=== PATIENT | male | born 1960 | race Caucasian/White ===

== ENCOUNTER → 2022-01-14 09:42 | Outpatient (CLI) | payer BC, SELFPAY ==
[2022-01-14 11:34] LABS: Add Manual Diff / Slide Review NO; Basophils Absolute Auto 0 /uL (0-100); Basophils Percent Auto 0.4 % (0-2); Eosinophils Absolute Auto 100 /uL (0-450); Eosinophils Percent Auto 2.1 % (2-4); Hematocrit 43.3 % (41-53); Hemoglobin 15.2 g/dL (13.5-17.5); Lymphocytes Absolute Auto 1600 /uL (1100-4500); Mean Corpuscular HGB Conc 35.1 % (30-36); Mean Corpuscular Hemoglobin 32.5 PG (26-34); Mean Corpuscular Volume 92.7 fL (80-100); Monocytes Absolute Auto 400 /uL (0-900); Monocytes Percent Auto 8.9 % (3-14); Neutrophils Absolute Auto 2000 /uL (1500-7000); Neutrophils Percent Auto 48.6 % (50-75); Platelet Count 130 X10^3/uL (150-400); Red Blood Cell Count 4.67 X10^6/uL (4.5-5.9); Red Cell Distribution Width 12.6 % (11.6-14.8); White Blood Cell Count 4.1 X10^3/uL (4.5-11.0)
[2022-01-14 12:14] LABS: Alanine Aminotransferase 20 IU/L (<50); Albumin 4.1 g/dL (3.5-5.0); Albumin Globulin Ratio 1.6 (1.0-2.8); Alkaline Phosphatase 49 U/L (38-126); Aspartate Aminotransferase 27 IU/L (17-59); BUN Creatinine Ratio 19.8 (6-22); Bilirubin Total 0.8 mg/dL (0.2-1.3); Blood Urea Nitrogen 19 mg/dL (9-20); Calcium 9.7 mg/dL (8.4-10.2); Carbon Dioxide 33 mmol/L (22-32); Chloride 102 mmol/L (98-107); Cholesterol 171 mg/dL (140-199); Estimated Glomerular Filt Rate > 60.0 mL/min (>60); Globulin 2.5 g/dL (1.7-4.1); Glucose 83 mg/dL (80-110); HDL Cholesterol 43 mg/dL (40-60); HEMOLYSIS < 15 (0-50); LDL Cholesterol Calculated 101 mg/dL (<100); Potassium 4.2 mmol/L (3.4-5.1); Sodium 138 mmol/L (137-145); Total Protein 6.6 g/dL (6.3-8.2); Triglycerides 133 mg/dL (35-150)
[2022-01-14 12:41] LABS: Thyroid Stimulating Hormone 3.08 uIU/mL (0.47-4.68)
[2022-01-14 12:42] LABS: Testosterone 244 ng/dL (71.8-623)
== END ==
PROVIDERS: PCP Family Medicine; Referring Provider Family Medicine; Visit Provider Family Medicine
DX: Z79.899 Other long term (current) drug therapy (principal); Z13.220 Encounter for screening for lipoid disorders; R53.83 Other fatigue; R79.89 Other specified abnormal findings of blood chemistry
CPT/HCPCS: 80053; 80061; 84403; 84443; 85025

== ENCOUNTER → 2022-02-21 11:16 | Outpatient (CLI) | payer BC, SELFPAY ==
[2022-02-21 13:17] LABS: Testosterone 273 ng/dL (71.8-623)
== END ==
PROVIDERS: PCP Family Medicine; Referring Provider Family Medicine; Visit Provider Family Medicine
DX: R79.89 Other specified abnormal findings of blood chemistry (principal)
CPT/HCPCS: 36415; 84403

== ENCOUNTER → 2022-06-10 17:41 | Outpatient (CLI) | payer BC, SELFPAY ==
--- NOTE | 2022-06-10 17:44 | DI.MRI.S_ITS ---
PROCEDURE: MR SHOULDER RT WO CON INDICATIONS: ROTATOR CUFF INPIGEMENT SYDROME RT SHOULDER TECHNIQUE: Noncontrast oblique coronal T2 fast spin echo with fat saturation, oblique sagittal T1 spin echo and T2 fast spin echo with fat saturation, axial T1 spin echo and T2 fast spin echo with fat saturation through the shoulder. COMPARISON: [facility] Outside Film, CR, XR SHOULDER 2+ VIEWS RIGHT, 02/17/2022, 11:50. FINDINGS: Image quality: Excellent. Rotator cuff: There is full-thickness tear of the posterior fibers of the supraspinatus tendon near the supraspinatus-infraspinatus tendon junction. No tendon retraction or supraspinatus muscle atrophy. There is moderate infraspinatus and subscapularis tendinosis. Bones and bursae: No bone marrow contusions or fractures. Moderate acromioclavicular and glenohumeral joint degeneration. The acromion demonstrates conventional anatomy, without an os acromiale. Small subcoracoid bursal fluid is present consistent with mild bursitis. Capsule and soft tissues: There is tear of the posterior superior labrum. The long head of the biceps tendon demonstrates normal location and morphology. The rotator interval appears normal, without fibrosis. The coracohumeral ligament is normal in thickness. IMPRESSION: 1. Full-thickness tear of the supraspinatus tendon near the supraspinatus-infraspinatus tendon junction. 2. Moderate infraspinatus and subscapularis tendinosis. 3. Posterior superior labral tear. 4. Moderate acromioclavicular and glenohumeral joint degeneration. 5. Mild subcoracoid bursitis. Dictated by: Alireza Thomas M.D. on 06/11/2022 at 9:19 Approved by: Alireza Thomas M.D. on 06/11/2022 at 9:28
== END ==
PROVIDERS: PCP Family Medicine; Referring Provider Orthopaedic Surgery; Visit Provider Orthopaedic Surgery
DX: M75.41 Impingement syndrome of right shoulder (principal); S46.011A Strain of muscle(s) and tendon(s) of the rotator cuff of right shoulder, initial encounter; S43.431A Superior glenoid labrum lesion of right shoulder, initial encounter; M75.51 Bursitis of right shoulder
CPT/HCPCS: 73221